=== PATIENT | male | born 1970 | race Caucasian/White ===

== ENCOUNTER 2020-09-03 11:50 | Outpatient (CLI) | payer BC, SELFPAY ==
--- NOTE | ~2020-09-03 | XR_ITS ---
XR chest 2V DATE: 09/03/2020 12:05 INDICATION: Shortness of breath; Covid infection in June. TECHNIQUE: PA and lateral views COMPARISON: None FINDINGS: Normal heart size. No hilar or mediastinal enlargement. No pulmonary infiltrate or consolid ation, pleural effusion or pulmonary vascular congestion or pneumothorax. Mild levoscoliosis of the thoracic spine. IMPRESSION: No active cardiopulmonary disease Reviewed, dictated and finalized at location B. [employer]
== END 2020-09-03 11:51 | disposition home or self-care (01) ==
PROVIDERS: PCP Internal Medicine; Visit Provider Internal Medicine
DX: R06.02 Shortness of breath (principal)
CPT/HCPCS: 71046

== ENCOUNTER 2020-10-16 08:30 | Outpatient (CLI) | payer BC, SELFPAY ==
--- NOTE | 2020-10-30 12:54 | WPDHOMESLEEP ---
Sleep Study - Home Unattended Date of Study: 10/16/20 Ordering Provider: Obdulio Sue MD Interpreting Provider: Felicity Carcamo MD Home Sleep Study Type: Apnea Link Air Height: 1.8 m Weight: 103.419 kg Body Mass Index: 31.8 Neck Circumference (inches): 16 [place]: 3 Reason for Sleep Study Loud snoring Sleep History Quentin Mercedes is a 50-year-old man with a history of hypertension. He snores loudly and others frequently complain about it. He occasionally has heartburn at night. He does not awaken from sleep feeling short of breath. He does not have trouble sleep with a cold. He does not gasp for breath at night, have breathing problems at night reported to him by others, sweating excessively at night or notices heart pounding or beating irregularly at night. He denies falling asleep during the day, falling asleep involuntarily, falling asleep while driving or while exerting physical effort. He does not have loss of muscle tone was strong emotion. He rarely has daytime difficulties due to excessive sleepiness. 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 He does not feel paralyzed on waking or falling asleep and does not have vivid dreamlike scenes upon awakening or falling asleep. He does not feel afraid to go to sleep. He rarely has nightmares. He frequently remembers his dreams. He occasionally has racing thoughts. He rarely feels sad or depressed. He frequently has anxiety. He rarely has muscular tension. He occasionally notices parts of his body jerking and he occasionally kicks at night. He rarely has crawling and aching feelings in his legs. He does not have any kind of leg pain at night. He does not have morning jaw pain. He does not grind his teeth during sleep, does not have pain during the day or pain that wakes him at night. He does not wake up feeling stiff in the morning with sore muscles or pain in the spine. He reports a 20 lb decrease in his weight over the last year. Normal bedtime is between 8:00 p.m. and 9:00 p.m. falling asleep within 15-30 minutes, waking once at night to urinate. He wakes in the morning at 5:00 a.m.. On weekends he goes to bed between 9:00 p.m. and 10:00 p.m. and wakes at 7:00 a.m.. He estimates 7-8 hours of sleep routinely. He does not take naps. A short nap is not refreshing. He feels better in the afternoon or evening compared to the morning. Habits: Tobacco quit 22 years ago. He uses chewing tobacco 1 can per day. Caffeine 2 cups a day. Alcohol socially not regularly. [facility] Past Medical History Medical History (Updated 10/30/20 @ 13:02 by Felicity Carcamo MD) Elevated blood pressure reading Fatigue Hypersomnia Major depressive disorder Surgical History Surgical History (Updated 10/30/20 @ 13:02 by Felicity Carcamo MD) History of laminectomy History of nasal septoplasty History of partial knee replacement History of tonsillectomy and adenoidectomy Family History Family History Father Family history of obesity Family history of cardiovascular disease Cerebrovascular accident Mother Depression Family history of cardiovascular disease Cerebrovascular accident Sibling Depression Social History Social History Alcohol intake: current Medications Home Medications Medication Instructions Recorded Confirmed Type rosuvastatin 20 mg tablet 20 mg PO DAILY #90 tablet 05/29/20 08/19/20 Rx safety needles 18 gauge x 1 #24 ea 07/09/20 08/19/20 Rx syringe with needle 3 mL 22 x 1 #24 ea 07/09/20 08/19/20 Rx 1/2 omeprazole 40 mg capsule,delayed 40 mg PO DAILY #90 cap 08/14/20 08/19/20 Rx release lisinopril 20 mg tablet 20 mg PO DAILY #30 tablet 08/24/20 Rx testosterone cypionate 200 mg/mL 200 mg IM WEEKLY #10 ml 09/01/20 Rx intramuscular oil Sleep Procedure This test was performed using 4 channel monitoring including respira
[2020-10-30 13:07] VITALS: BMI 31.8
== END 2020-10-16 08:31 | disposition home or self-care (01) ==
LOC: ANHCSM 08:31
PROVIDERS: PCP Internal Medicine; Visit Provider Internal Medicine
DX: G47.33 Obstructive sleep apnea (adult) (pediatric) (principal); G47.10 Hypersomnia, unspecified
CPT/HCPCS: 95806

== ENCOUNTER → 2020-11-17 03:16 | Outpatient (CLI) | payer BC, SELFPAY ==
[2020-11-17 18:08] LABS: SARS-CoV-2 RNA PCR Negative
== END ==
PROVIDERS: PCP Internal Medicine; Visit Provider Internal Medicine Critical Care Medicine
DX: Z20.822 Contact with and (suspected) exposure to COVID-19 (principal)
CPT/HCPCS: C9803; U0003; U0005

== ENCOUNTER 2020-11-19 09:06 | Outpatient (CLI) | payer BC, SELFPAY ==
--- NOTE | 2020-12-04 11:00 | WPDSLEEPSTUD ---
Sleep Study Ordering Provider: Obdulio Sue MD Interpreting Physician: Felicity Carcamo MD Sleep Study Type: CPAP Titration Height: 1.8 m Weight: 104.326 kg Body Mass Index: 32.1 Neck Circumference (inches): 16 [facility]: 9 Reason for Sleep Study 10/16/20 home sleep test with mild obstructive sleep apnea; AHI 7.3 ( 73% obstructive apneas, 27% central/mixed apneas), lowest saturation 86%, frequent snoring, here for CPAP titration. He has a hx of RLS, could not tolerate the medication. Sleep History Quentin Mercedes is a 50-year-old man with a history of hypertension. He snores loudly and others frequently complain about it. He occasionally has heartburn at night. He does not awaken from sleep feeling short of breath. He does not have trouble sleep with a cold. He does not gasp for breath at night, have breathing problems at night reported to him by others, sweating excessively at night or notices heart pounding or beating irregularly at night. He denies falling asleep during the day, falling asleep involuntarily, falling asleep while driving or while exerting physical effort. He does not have loss of muscle tone was strong emotion. He rarely has daytime difficulties due to excessive sleepiness. 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 He does not feel paralyzed on waking or falling asleep and does not have vivid dreamlike scenes upon awakening or falling asleep. He does not feel afraid to go to sleep. He rarely has nightmares. He frequently remembers his dreams. He occasionally has racing thoughts. He rarely feels sad or depressed. He frequently has anxiety. He rarely has muscular tension. He occasionally notices parts of his body jerking and he occasionally kicks at night. He rarely has crawling and aching feelings in his legs. He does not have any kind of leg pain at night. He does not have morning jaw pain. He does not grind his teeth during sleep, does not have pain during the day or pain that wakes him at night. He does not wake up feeling stiff in the morning with sore muscles or pain in the spine. He reports a 20 lb decrease in his weight over the last year. Normal bedtime is between 8:00 p.m. and 9:00 p.m. falling asleep within 15-30 minutes, waking once at night to urinate. He wakes in the morning at 5:00 a.m.. On weekends he goes to bed between 9:00 p.m. and 10:00 p.m. and wakes at 7:00 a.m.. He estimates 7-8 hours of sleep routinely. He does not take naps. A short nap is not refreshing. He feels better in the afternoon or evening compared to the morning. Habits: Tobacco quit 22 years ago; uses chewing tobacco 1 can per day. Caffeine: 2 cups/day. Alcohol: socially, not regularly. [facility] Past Medical History Medical History (Updated 12/04/20 @ 11:15 by Felicity Carcamo MD) Elevated blood pressure reading Fatigue Hypersomnia Major depressive disorder Restless legs syndrome (RLS) Surgical History Surgical History (Updated 10/30/20 @ 13:02 by Felicity Carcamo MD) History of laminectomy History of nasal septoplasty History of partial knee replacement History of tonsillectomy and adenoidectomy Family History Family History Father Family history of obesity Family history of cardiovascular disease Cerebrovascular accident Mother Depression Family history of cardiovascular disease Cerebrovascular accident Sibling Depression Social History Social History Alcohol intake: current Medications Home Medications Medication Instructions Recorded Confirmed Type rosuvastatin 20 mg tablet 20 mg PO DAILY #90 tablet 05/29/20 11/12/20 Rx safety needles 18 gauge x 1 #24 ea 07/09/20 11/12/20 Rx omeprazole 40 mg capsule,delayed 40 mg PO DAILY #90 cap 08/14/20 11/12/20 Rx release syringe with needle 3 mL 23 x 1 See Rx Instructions .ROUTE 11/06/20 11/12/20 Rx .COMPLEX #24 ea testosterone
[2020-12-04 11:24] VITALS: BMI 32.1
== END 2020-11-19 09:07 | disposition home or self-care (01) ==
LOC: ANHCSM 09:07
PROVIDERS: PCP Internal Medicine; Visit Provider Internal Medicine
DX: G47.33 Obstructive sleep apnea (adult) (pediatric) (principal); G25.81 Restless legs syndrome; Z79.899 Other long term (current) drug therapy
CPT/HCPCS: 95811

== ENCOUNTER → 2021-04-08 13:53 | Outpatient (CLI) | payer BC, SELFPAY ==
--- NOTE | ~2021-04-08 | MR_ITS ---
EXAMINATION: MR shoulder LT wo con DATE: 04/08/2021 14:37 INDICATION: Acute onset left shoulder pain and limited range of motion TECHNIQUE: Magnetic resonance imaging (MRI) of the left shoulder was performed without intravenous co ntrast. Sequences included axial PD-weighted FS FSE, coronal oblique PD-weighted FS FSE, coronal obli que T2-weighted FS FSE, sagittal PD-weighted FS FSE, and sagittal T1-weighted SE. COMPARISON: None. FINDINGS: Coracoacromial arch: The acromion undersurface is curved in morphology (type II). The coracoacromial ligament is normal. M ild acromioclavicular osteoarthritis. Rotator cuff: Moderate supraspinatus tendinopathy with tiny intrasubstance tear, too small to measure at the superi or facet footplate. Mild infraspinatus tendinopathy without discrete tear. The teres minor and subsca pularis tendons are normal. Normal rotator cuff muscle bulk and signal. Biceps tendon, glenoid labrum and glenohumeral cartilage: Long head of the biceps tendon is normal. Degenerative tearing at the posterior superior glenoid labr um. Mild partial-thickness cartilage loss with smooth chondral surface at the inferomedial aspect of the humeral head and cephalad third of the glenoid. Fluid: Physiologic amount of fluid in the glenohumeral joint and biceps tendon sheath. No loose osteochondra l bodies. Mild increased fluid signal in the subacromial/subdeltoid bursa consistent with mild bursit is. Bones: Small low signal intensity bone island at the humeral head. There is some red marrow reexpansion in t he visualized proximal metaphyseal and diaphyseal regions of the proximal humerus and in portions of the scapula. No fracture or pathologic marrow replacing process. Minimal cystic change along the supe rior facet of the greater tuberosity likely related to the overlying rotator cuff disease. IMPRESSION: 1. Moderate supraspinatus tendinopathy with tiny intrasubstance tear at the superior facet footplate. 2. Mild glenohumeral osteoarthritis with degenerative tearing at the posterior superior glenoid labru m. 3. Mild acromioclavicular osteoarthritis. 4. Mild subacromial/subdeltoid bursitis. Reviewed, dictated and finalized at location A. IMPRESSION: 1. Moderate supraspinatus tendinopathy with tiny intrasubstance tear at the sup erior facet footplate. 2. Mild glenohumeral osteoarthritis with degenerative tearing at the posterior superior glenoid labrum. 3. Mild acromioclavicular osteoarthritis. 4. Mild subacromial/subdeltoid bursitis.
== END ==
PROVIDERS: PCP Internal Medicine; Visit Provider Orthopaedic Surgery
DX: M19.012 Primary osteoarthritis, left shoulder (principal); M75.52 Bursitis of left shoulder; S43.432A Superior glenoid labrum lesion of left shoulder, initial encounter
CPT/HCPCS: 73221

== ENCOUNTER 2024-08-16 08:22 | Outpatient (CLI) | payer BC, SELFPAY ==
--- NOTE | 2024-08-16 08:27 | EST_ITS ---
Patient Info Name: Quentin Mercedes Age: 54 years : 1970 Gender: Male Ht: 71 in Wt: 250 lbs BSA: 2.42 m2 BP: 110 / 72 mmHg Exam Date: 08/16/2024 9:28 AM Exam Location: Echo Lab Patient Status: Outpatient Admit Date: 08/16/2024 Staff Ordering Physician: Tawnya Alvarado APRN Electromatic Typist: Rina Way RDCS Attending Provider: Tawnya Alvarado APRN Exercise Technologist: Brittney Ruiz RDCS Exercise Physician: Matt Souza DO Exam Type: CA stress echo Study Info Indications Z82.49 - Family history of ischemic heart disease and other diseases of the circulatory system Treadmill exercise stress echocardiogram is performed. Summary 1. 1. Negative Amol exercise stress test for ischemic ST changes by ECG criteria. 2. 2. Good functional capacity, achieving 10 METs of workload. 3. 3. Hypertensive response to exercise. 4. 4. Appropriate HR response to exercise. 5. 5. Appropriate HR recovery at 1 minute post exercise. 6. 6. Negative stress echocardiogram for ischemia by wall motion analysis. 7. 7. Patient informed of the above results. Stress Echo Findings Left Ventricle Appropriate increase in LV endocardial thickening with systole. Appropriate augmentation of contractility with systole. No wall motion abnormality. Left Ventricle Preserved LV function with EF 50-55%, no wall motion abnormality. Protocol: Amol Stress ECG Details Stage: REST Duration (min): 1 min : 5 sec Speed (mph): 0.0 Grade (%): 0 HR (bpm): 62 SBP (mmHg): 110 DBP (mmHg): 72 METS: --- Stage: REST Duration (min): 51 min : 0 sec Speed (mph): 0.0 Grade (%): 0 HR (bpm): 67 SBP (mmHg): 110 DBP (mmHg): 72 METS: --- Stage: STAGE 1 Duration (min): 1 min : 0 sec Speed (mph): 1.7 Grade (%): 10 HR (bpm): 92 SBP (mmHg): 110 DBP (mmHg): 72 METS: --- Stage: STAGE 1 Duration (min): 2 min : 0 sec Speed (mph): 1.7 Grade (%): 10 HR (bpm): 102 SBP (mmHg): 110 DBP (mmHg): 72 METS: --- Stage: STAGE 1 Duration (min): 3 min : 0 sec Speed (mph): 1.7 Grade (%): 10 HR (bpm): 102 SBP (mmHg): 110 DBP (mmHg): 72 METS: --- Stage: STAGE 2 Duration (min): 1 min : 0 sec Speed (mph): 2.5 Grade (%): 12 HR (bpm): 119 SBP (mmHg): 199 DBP (mmHg): 42 METS: --- Stage: STAGE 2 Duration (min): 2 min : 0 sec Speed (mph): 2.5 Grade (%): 12 HR (bpm): 127 SBP (mmHg): 199 DBP (mmHg): 42 METS: --- Stage: STAGE 2 Duration (min): 3 min : 0 sec Speed (mph): 2.5 Grade (%): 12 HR (bpm): 135 SBP (mmHg): 203 DBP (mmHg): 69 METS: --- Stage: STAGE 3 Duration (min): 1 min : 0 sec Speed (mph): 3.4 Grade (%): 14 HR (bpm): 147 SBP (mmHg): 120 DBP (mmHg): 44 METS: --- Stage: STAGE 3 Duration (min): 2 min : 0 sec Speed (mph): 3.4 Grade (%): 14 HR (bpm): 153 SBP (mmHg): 120 DBP (mmHg): 44 METS: --- Stage: STAGE 3 Duration (min): 2 min : 12 sec Speed (mph): 0.0 Grade (%): 0 HR (bpm): 154 SBP (mmHg): 210 DBP (mmHg): 101 METS: --- Stage: RECOVERY Duration (min): 0 min : 47 sec Speed (mph): 0.0 Grade (%): 0 HR (bpm): 125 SBP (mmHg): 210 DBP (mmHg): 101 METS: --- Stage: RECOVERY Duration (min): 1 min : 47 sec Speed (mph): 0.0 Grade (%): 0 HR (bpm): 98 SBP (mmHg): 210 DBP (mmHg): 101 METS: --- Stage: RECOVERY Duration (min): 2 min : 48 sec Speed (mph): 0.0 Grade (%): 0 HR (bpm): 90 SBP (mmHg): 118 DBP (mmHg): 43 METS: --- Stage: RECOVERY Duration (min): 3 min : 5 sec Speed (mph): 0.0 Grade (%): 0 HR (bpm): 90 SBP (mmHg): 118 DBP (mmHg): 43 METS: --- Rest HR: 67 bpm Peak HR: 154 bpm Rest Sys BP: 110 mmHg Peak Sys BP: 210 mmHg Max Pred HR: 164 bpm % Max Pred HR: 94 % Target HR: 139 bpm Max RPP: 32,340 bpm*mmHg Sanchez Score: 0 BP Response: Patient exhibited a hypertensive response with stress Termination Reason: Reached target heart rate or workload Cardiac Symptoms: Shortness of breath Max ST Seg Deviation: -1.60 mm Total Time: 8 min : 12 sec Rest Perkins BP: 72 mmHg Peak Perkins BP: 101 mmHg Angina Score: None Total METS: 10.3 Resting ECG Sinus rhythm. Stress ECG No ST changes. Arrhythmias None. Report Signatures Stress ECG Echo
== END 2024-08-16 08:23 | disposition home or self-care (01) ==
PROVIDERS: PCP Nurse Practitioner Family; Visit Provider Nurse Practitioner Family
DX: Z82.49 Family history of ischemic heart disease and other diseases of the circulatory system (principal)
CPT/HCPCS: 93351

== ENCOUNTER 2024-09-10 15:33 | Outpatient (CLI) | payer BC, SELFPAY ==
[2024-09-10 16:08] LABS: Hematocrit 43.2 % (42.0-52.0); Mean Corpuscular HGB Conc 32.4 g/dl (32-36); Mean Corpuscular Hemoglobin 27.3 pg (26-34); Mean Corpuscular Volume 84.4 fl (80-100); Mean Platelet Volume 9.7 fl (7.4-10.4); Platelet Count Result 227 k/mm3 (150-375); Red Blood Count 5.12 M/mm3 (4.6-6.20); Red Cell Distribution Width 15.9 % (11.5-14.5); White Blood Count 6.2 K/mm3 (4.5-10.0)
[2024-09-10 16:49] LABS: Prostate Specific Antigen 1.3 ng/mL (< OR = 4.0)
== END 2024-09-10 15:34 | disposition home or self-care (01) ==
LOC: ANHLAB 15:39
PROVIDERS: PCP Nurse Practitioner Family; Visit Provider Urology
DX: E29.1 Testicular hypofunction (principal)
CPT/HCPCS: 36415; 82670; 84153; 84402; 84403; 85027

== ENCOUNTER 2024-12-03 12:41 | Outpatient (CLI) | payer BC, SELFPAY ==
--- NOTE | ~2024-12-03 | US_ITS ---
Abdominal ultrasound CLINICAL HISTORY: Hernia TECHNIQUE: Targeted sonographic imaging of the abdominal wall performed of the area of clinical thea rn. FINDINGS: No hernia identified. There are focal scars related to prior cholecystectomy at the area of scanning. No solid mass or cystic lesion identified. No fluid collection seen. IMPRESSION: No hernia identified. No sonographic abnormality seen. Reviewed, dictated and finalized at [facility].
== END 2024-12-03 12:42 | disposition home or self-care (01) ==
LOC: GOSHIMG 12:41
PROVIDERS: PCP Nurse Practitioner Family; Visit Provider Nurse Practitioner Family
DX: R10.9 Unspecified abdominal pain (principal)
CPT/HCPCS: 76705